=== PATIENT | female | born 1985 | race Caucasian/White ===

== ENCOUNTER 2020-01-13 19:36 | Emergency (ER) | payer OTHER, SELFPAY ==
[2020-01-13 19:47] VITALS: BP 139/77; PULSE 78; RESP 18; TEMP 36.9; O2SAT 98
--- NOTE | 2020-01-13 20:56 | ED.NAVMDI ---
HPI - Nausea/Vomiting/Diarrhea General Chief complaint: Nausea/Vomiting/Diarrhea Stated complaint: THROWING UP CHILLS HEADACHE Time Seen by Provider: 01/13/20 20:56 Source: patient Mode of arrival: Ambulatory Limitations: no limitations History of Present Illness HPI Narrative: 34-year-old female. 24 hours of vomiting. No diarrhea. No sick contacts. No travel. No antibiotics. Has not tried anything for the vomiting. Has had body aches. Related Data Previous Rx's Medication Instructions Recorded ondansetron 4 mg PO Q6H PRN #14 tab 01/13/20 Allergies Allergy/AdvReac Type Severity Reaction Status Date / Time dexamethasone Allergy Unknown Verified 01/13/20 19:52 Review of Systems Constitutional Constitutional: Reports fatigue Cardiovascular Cardiovascular: Denies chest pain and Denies dyspnea Respiratory Respiratory: Denies dyspnea Gastrointestinal Gastrointestinal: Reports abdominal pain, Denies change in stool character, Reports nausea and Reports vomiting Genitourinary Genitourinary: Denies dysuria and Denies vaginal discharge Musculoskeletal Musculoskeletal: Denies myalgias and Denies arthralgias Integumentary/Breasts Skin/Breast: Denies rash Neurologic Neurologic: Denies behavioral changes Psychiatric Psychiatric: Denies behavioral changes Endocrine Endocrine: Reports fatigue Hematologic/Lymphatic Hematologic/Lymphatic: Denies easy bleeding and Denies easy bruising Patient History Medical History Patient denies medical problems (Acute) Social History Smoking Status: Never smoker Smoking Status: Never smoker alcohol intake frequency: 0-2 drinks per day Substance Use Type: does not use Exam Initial Vital Signs Initial Vital Signs: Vital Signs Temperature 98.4 F 01/13/20 19:47 Pulse Rate 78 01/13/20 19:47 Respiratory Rate 18 01/13/20 19:47 Blood Pressure 139/77 01/13/20 19:47 Pulse Oximetry 98 01/13/20 19:47 Const General: cooperative and comfortable Limitations: mental status not altered HENMT Head: normal to inspection and normocephalic Resp Effort & Inspection: normal respiratory effort Auscultation: clear to auscultation bilaterally Cardio Rate: regular rate GI Inspection: non-distended Palpation: soft Skin Lesions: no lesions Rashes: no rashes Neuro General: alert and awake Extrem General: capillary refill normal Course Orders Ordered: ED Orders 01/13/20 21:18 Basic Metabolic Panel Stat Complete Blood Count AUTO DIFF Stat Test Serum,Qual Stat Discontinued Medications Sodium Chloride (Normal Saline 0.9%) 1,000 mls @ 1,000 mls/hr IV BOLUS ONE Stop: 01/13/20 21:58 Last Infusion: 01/13/20 22:25 Dose: 0 mls/hr Documented by: Admin: 01/13/20 21:23 Dose: 1,000 mls/hr Documented by: JELANI Ondansetron HCl (Zofran) 4 mg IV NOW ONE Stop: 01/13/20 21:00 Last Admin: 01/13/20 21:24 Dose: 4 mg Documented by: JELANI Ondansetron HCl (Zofran Odt Prepack) 1 bottle MISC SEEINSTR ONE Stop: 01/13/20 22:54 Last Admin: 01/13/20 23:04 Dose: 1 bottle Documented by: JELANI Vital Signs Vital signs: Vital Signs - 8 hr 01/13/20 19:47 01/13/20 21:46 01/13/20 22:30 Temperature 98.4 F Pulse Rate 78 78 77 Respiratory Rate 18 16 Blood Pressure 139/77 Blood Pressure [Left Arm] 142/80 H 140/91 H Pulse Oximetry 98 99 100 MDM - Nausea/Vomiting/Diarrhea Lab Data Attestation: I reviewed the patient's lab results. Result diagrams: 01/13/20 21:18 01/13/20 21:18 Labs: Lab Results 01/13/20 01/13/20 01/13/20 Range/Units 21:18 21:18 21:18 WBC 9.1 (4.5-11.0) X10^3/uL RBC 5.18 (4.0-5.2) X10^6/uL Hgb 15.1 (12.0-16.0) g/dL Hct 44.3 (36-46) % MCV 85.5 (80-100) fL MCH 29.1 (26-34) PG MCHC 34.1 (30-36) % RDW 13.0 (11.6-14.8) % Plt Count 487 H (150-400) X10^3/uL Neut % (Auto) 71.0 (50-75) % Lymph % (Auto) 23.6 L (25-40) % [place] % (Auto) 5.0 (3-14) % Eos % (Auto) 0.0 L (2-4) % Baso % (Auto) 0.4 (0-2) % Neut # (Auto) 6500 (8173-3722) /uL Lymph # (Auto) 2200 (7239-5755) /uL [place] # (Auto) 500 (0-900) /uL Eos # (Auto) 0 (0-450) /uL Baso # (Auto) 0 (0-100) /uL Sodium 139 (137-145) mmol/L Potassium 3.6 (3.4-5.1) mmol/L Chloride 102 (98-107) mmol/L Carbon Dioxide 29 (22-32) mmol/L BUN 21 H (7-17) mg/dL Creatinine 0.71 (0.52-1.04) mg/dL Estimated GFR > 60.0 (>60) mL/min BUN/Creatinine Ratio 29.6 H (6-22) Glucose 99 (70-100) mg/dL Calcium 10.0 (8.4-10.2) mg/dL Serum , Qual Negative (Negative) MDM Narrative Medical decision making narrative: Nontoxic, benign abdomen, tolerate oral intake after fluids and nausea medicine. He will get hold on further workup for now. Patient was given return precautions and follow-up instructions. She expressed understanding agreement. Discharge Plan Departure Patient Disposition: Home Clinical Impression: Vomiting Qualifiers: Vomiting type: unspecified Vomiting Intractability: unspecified Nausea presence: unspecified Qualified Code(s): R11.10 - Vomiting, unspecified Discharge Date/Time: 01/13/20 23:08 Instructions: DI for Vomiting -- Adult Activity Restrictions/Additional Instructions: Use the nausea medication as needed and as directed. Increase your fluid intake by drinking small amounts of fluid over longer periods of time. Contact your primary provider for follow-up. Return to the emergency department for any new or worsening symptoms Prescriptions: New ondansetron 4 mg tablet,disintegrating 4 mg PO Q6H PRN (Reason: nausea and vomiting) Qty: 14 RF: 0
[2020-01-13] MEDS: SODIUM CHLORIDE 0.9% 1,000 ML 1000 ML IV (21:23)
[2020-01-13] MEDS: ONDANSETRON 4 MG/2 ML INJ IV (21:24)
[2020-01-13 21:27] LABS: Add Manual Diff / Slide Review NO; Basophils Absolute Auto 0 /uL (0-100); Basophils Percent Auto 0.4 % (0-2); Eosinophils Absolute Auto 0 /uL (0-450); Hematocrit 44.3 % (36-46); Hemoglobin 15.1 g/dL (12.0-16.0); Lymphocytes Absolute Auto 2200 /uL (1100-4500); Lymphocytes Percent Auto 23.6 % (25-40); Mean Corpuscular HGB Conc 34.1 % (30-36); Mean Corpuscular Hemoglobin 29.1 PG (26-34); Mean Corpuscular Volume 85.5 fL (80-100); Monocytes Absolute Auto 500 /uL (0-900); Neutrophils Absolute Auto 6500 /uL (1500-7000); Platelet Count 487 X10^3/uL (150-400); Red Blood Cell Count 5.18 X10^6/uL (4.0-5.2); White Blood Cell Count 9.1 X10^3/uL (4.5-11.0)
[2020-01-13 21:39] LABS: BUN Creatinine Ratio 29.6 (6-22); Blood Urea Nitrogen 21 mg/dL (7-17); Carbon Dioxide 29 mmol/L (22-32); Chloride 102 mmol/L (98-107); Estimated Glomerular Filt Rate > 60.0 mL/min (>60); Glucose 99 mg/dL (70-100); HEMOLYSIS < 15 (0-50); Potassium 3.6 mmol/L (3.4-5.1); Sodium 139 mmol/L (137-145)
[2020-01-13 21:45] LABS: Pregnancy Test Serum,Qual Negative (Negative)
[2020-01-13 21:46] VITALS: BP 142/80; PULSE 78; O2SAT 99
[2020-01-13 22:30] VITALS: BP 140/91; PULSE 77; RESP 16; O2SAT 100
[2020-01-13] MEDS: ONDANSETRON 4 MG ODT PREPACK 1 BOTTLE MISC (23:04)
== END 2020-01-13 23:08 | disposition home or self-care (01) ==
PROVIDERS: Emergency Provider Emergency Medicine
DX: R11.10 Vomiting, unspecified (principal); R10.9 Unspecified abdominal pain; R53.83 Other fatigue
CPT/HCPCS: 36415; 80048; 84703; 85025; 96361; 96374; 99284; J2405